=== PATIENT | male | born 1955 | race Caucasian/White ===

== ENCOUNTER → 2021-05-26 09:48 | Outpatient (CLI) | payer MEDICARE, OTHER, SELFPAY | PROVIDERS: Visit Provider Ophthalmology | DX: Z01.812 Encounter for preprocedural laboratory examination (principal); Z11.52 Encounter for screening for COVID-19 | CPT/HCPCS: C9803; U0003; U0005 ==

== ENCOUNTER 2021-05-29 06:20 | Day surgery (SDC) | payer MEDICARE, OTHER, SELFPAY ==
[2021-05-23 11:19] VITALS: BMI 21.7
[2021-05-29 06:47] VITALS: BP 170/82; PULSE 60; RESP 18; TEMP 36.7; O2SAT 94
[2021-05-29 09:21] VITALS: BP 154/80; PULSE 65; RESP 20; O2SAT 99
[2021-05-29 09:26] VITALS: BP 151/74; PULSE 63; RESP 20; O2SAT 94
[2021-05-29 09:31] VITALS: BP 138/79; PULSE 66; RESP 18; O2SAT 100
[2021-05-29 09:36] VITALS: BP 139/69; PULSE 68; RESP 18; O2SAT 100
[2021-05-29 09:41] VITALS: BP 149/65; BP 162/72; PULSE 61; PULSE 63; RESP 18; RESP 20; TEMP 36.6; O2SAT 100
== END 2021-05-29 09:50 | disposition home or self-care (01) ==
PROVIDERS: Visit Provider Ophthalmology
DX: H25.813 Combined forms of age-related cataract, bilateral (principal); H31.012 Macula scars of posterior pole (postinflammatory) (post-traumatic), left eye
CPT/HCPCS: 66984; V2632

== ENCOUNTER → 2021-06-23 09:57 | Outpatient (CLI) | payer MEDICARE, OTHER, SELFPAY | PROVIDERS: Visit Provider Ophthalmology | DX: Z01.812 Encounter for preprocedural laboratory examination (principal); Z11.52 Encounter for screening for COVID-19 | CPT/HCPCS: C9803; U0003; U0005 ==

== ENCOUNTER 2021-06-26 06:11 | Day surgery (SDC) | payer MEDICARE, OTHER, SELFPAY ==
[2021-06-26] VITALS (7 sets, daily range): BP systolic 147–195; BP diastolic 76–93; PULSE 62–66; RESP 16–18; TEMP 36.6–36.9; O2SAT 94–100; BMI 25.7
== END 2021-06-26 08:30 | disposition home or self-care (01) ==
LOC: OR 06:19
PROVIDERS: Visit Provider Ophthalmology
DX: H25.813 Combined forms of age-related cataract, bilateral (principal); H31.012 Macula scars of posterior pole (postinflammatory) (post-traumatic), left eye
CPT/HCPCS: 66984; V2632; V2788